=== PATIENT | male | born 1990 | race Caucasian/White ===

== ENCOUNTER → 2017-06-03 | Outpatient (CLI) | payer OTHER ==
[2017-06-03 14:47] LABS: Bilirubin, Delta 0.3 mg/dL (0.0-0.2); Total Bilirubin 0.6 mg/dL (0.2-1.3); Total Protein 7.2 g/dL (6.3-8.2)
[2017-06-05 15:30] LABS: HCV Qualitative Result DETECTED (Not detected)
== END | disposition home or self-care (01) ==
LOC: LABWHC1 13:49
PROVIDERS: ATTEND Physician Assistant
DX: B18.2 Chronic viral hepatitis C (principal)
CPT/HCPCS: 36415; 80076; 87522

== ENCOUNTER 2018-05-08 13:48 | Emergency (ER) | payer BC, OTHER ==
[2018-05-08 14:10] VITALS: BP 118/77; PULSE 85; RESP 18; TEMP 98.5
--- NOTE | 2018-05-08 14:52 | XR ---
EXAMINATION TYPE: XR wrist complete LT DATE OF EXAM: 05/08/2018 COMPARISON: None HISTORY: Pain TECHNIQUE: 4 view left wrist FINDINGS: No acute fractures are evident. Soft tissues appear normal. Alignment is normal. Joint spac es are preserved. There is pain at the anatomic snuff box, nuclear medicine bone scan would be recommended for addition al evaluation. Follow-up exams can be performed 7-10 days from acute trauma for continued pain. IMPRESSION: 1. Normal 4 view left wrist.
--- NOTE | 2018-05-08 14:54 | XR ---
EXAMINATION TYPE: XR hand complete LT DATE OF EXAM: 05/08/2018 COMPARISON: None HISTORY: Pain TECHNIQUE: Three-view left hand FINDINGS: No acute fractures are evident. Joint spaces are preserved. Soft tissues are normal. Follow-up exams can be performed 7-10 days from acute trauma for continued pain. IMPRESSION: 1. Normal three-view left hand.
--- NOTE | 2018-05-08 14:58 | ED ---
Upper Extremity HPI - General Chief Complaint: Extremity Injury, Upper Stated Complaint: lt hand/wrist injury Time Seen by Provider: 05/08/18 14:07 Source: patient, RN notes reviewed, old records reviewed Mode of arrival: ambulatory Limitations: no limitations - History of Present Illness Initial Comments: 28 -year-old male presents emergency department today with chief complaint of left hand and wrist pain. Patient reports that he was playing softball, slid into a base with his hand and wrist was stepped on. He complains of pain over the fourth and fifth metacarpals. Patient states that he has pain with range motion of the fingers. He is right-handed. He denies any other symptoms leading peripheral paresthesias. No puncture or lacerations. - Related Data Previous Rx's Medication Instructions Recorded Ibuprofen 800 mg PO TID #30 tablet 05/08/18 Allergies Allergy/AdvReac Type Severity Reaction Status Date / Time No Known Allergies Allergy Verified 05/08/18 14:10 Review of Systems ROS Statement: Those systems with pertinent positive or pertinent negative responses have been documented in the HPI. ROS Other: All systems not noted in ROS Statement are negative. Past Medical History Past Medical History: No Reported History History of Any Multi-Drug Resistant Organisms: None Reported Past Surgical History: No Surgical Hx Reported Past Psychological History: No Psychological Hx Reported Smoking Status: Current every day smoker Past Alcohol Use History: None Reported Past Drug Use History: None Reported General Exam - General Exam Comments Initial Comments: 28-year-old male. Alert and oriented. No acute distress. Limitations: no limitations General appearance: alert, in no apparent distress Head exam: Present: atraumatic, normocephalic, normal inspection Eye exam: Present: normal appearance, PERRL, EOMI. Absent: scleral icterus, conjunctival injection, periorbital swelling ENT exam: Present: normal exam, mucous membranes moist Neck exam: Present: normal inspection. Absent: tenderness, meningismus, lymphadenopathy Respiratory exam: Present: normal lung sounds bilaterally. Absent: respiratory distress, wheezes, rales, rhonchi, stridor Cardiovascular Exam: Present: regular rate, normal rhythm, normal heart sounds. Absent: systolic murmur, diastolic murmur, rubs, gallop, clicks GI/Abdominal exam: Present: soft, normal bowel sounds. Absent: distended, tenderness, guarding, rebound, rigid Extremities exam: Present: normal inspection, full ROM, normal capillary refill. Absent: tenderness, pedal edema, joint swelling, calf tenderness Left Upper Arm exam: Present: normal inspection, full ROM Elbow exam: Present: normal inspection, full ROM Forearm Wrist exam: Present: normal inspection, full ROM, tenderness, swelling ( over fourth and fifth metacarpals. ) Hand Wrist exam: Present: normal inspection, full ROM Neuro motor exam: Present: wrist extension intact, thumb opposition intact, thumb IP flexion intact, thumb adduction intact, fingers 2-5 abduction intact Vascular: Present: normal capillary refill Back exam: Present: normal inspection Neurological exam: Present: alert, oriented X3, CN II-XII intact Psychiatric exam: Present: normal affect, normal mood Skin exam: Present: warm, dry, intact, normal color. Absent: rash Course Vital Signs 05/08/18 14:07 Temperature 98.5 F Pulse Rate 85 Respiratory 18 Rate Blood Pressure 118/77 O2 Sat by Pulse 98 Oximetry Medical Decision Making - Medical Decision Making his is a 28-year-old male presents emergency department today with chief complaint of left wrist and hand pain after he was playing softball. Patient has pain and tenderness over the left fourth and fifth metatarsal carpals. He has normal sensation, less than 2 second capillary refill and distal fingers. Normal range of motion of the wrist and elbow. he has no pain over the snuffbox.X-rays at this time are negative for any acute process.is placed in an Alf wrap. I discussed Motrin Tylenol and icing for pain. Return parameters were discussed. Disposition Clinical Impression: Wrist pain, left, Contusion of hand, left Disposition: HOME SELF-CARE Condition: Good Instructions: Hand Sprain (ED) Additional Instructions: Patient advised to take Motrin or Tylenol for pain. Apply ice over the area for 20 minutes on her feel times a day. Return to emergency department if any alarming signs or symptoms occur. Prescriptions: Ibuprofen 800 mg PO TID #30 tablet Is patient prescribed a controlled substance at d/c from ED?: No Referrals: None,Stated [Primary Care Provider] - 1-2 days Vy Zafar MD [STAFF PHYSICIAN] - 1-2 days Time of Disposition: 14:57
== END 2018-05-08 15:08 | disposition home or self-care (01) ==
LOC: EC 13:48
DX: S60.222A Contusion of left hand, initial encounter (principal); M25.532 Pain in left wrist; F17.200 Nicotine dependence, unspecified, uncomplicated; W18.40XA Slipping, tripping and stumbling without falling, unspecified, initial encounter; Y93.64 Activity, baseball
CPT/HCPCS: 99284